=== PATIENT | male | born 1990 | race African-American/Black ===

== ENCOUNTER 2021-02-26 17:22 | Emergency (ER) | payer OTHER ==
[~2021-02-26] VITALS: Ht 182.9 cm; Wt 120.0 kg
[2021-02-26 18:33] LABS: BASOPHILS % (AUTO) 1 % (0-1); EOSINOPHILS % (AUTO) 4 % (1-7); LYMPHOCYTES % (AUTO) 32 % (22-44); MEAN CORPUSCULAR HEMOGLOBIN 33.3 pg (27.5-34.5); MEAN CORPUSCULAR HGB CONC 34.5 g/dL (33.2-36.2); MEAN PLATELET VOLUME 9.9 fL (7.4-10.4); MONOCYTES % (AUTO) 7 % (2-9); NEUTROPHILS % (AUTO) 56 % (42-75); PLATELET COUNT 260 x10^3/uL (130-400); RED BLOOD COUNT 4.78 x10^6/uL (4.38-5.82); RED CELL DISTRIBUTION WIDTH 12.7 % (9.4-14.8)
[2021-02-26 18:43] LABS: ALANINE AMINOTRANSFERASE 59 U/L (12-78); ALBUMIN 3.7 g/dL (3.4-5.0); ANION GAP 6 mmol/L (5-15); CALCIUM 8.5 mg/dL (8.5-10.1); CHLORIDE 108 mmol/L (98-107); CREATININE 1.02 mg/dL (0.7-1.3)
[2021-02-26 18:47] LABS: ALKALINE PHOSPHATASE 98 U/L (45-117); BILIRUBIN,TOTAL 0.5 mg/dL (0.2-1.0); TOTAL PROTEIN 8.1 g/dL (6.4-8.2); TROPONIN I < 0.015 ng/mL (0.000-0.045)
--- NOTE | 2021-02-26 19:54 | NUR ---
pt to room from lobby
[2021-02-26 20:25] VITALS: BP 141/88
[2021-02-26] MEDS ORDERED: KETOROLAC 30 MG/1 ML ONE (20:26)
[2021-02-26] MEDS ORDERED: KETOROLAC 30 MG/1 ML IM ONE (20:30)
[2021-02-26] MEDS ORDERED: IBUPROFEN 800 MG TABLET PO ONE (20:30)
[2021-02-26] MEDS ORDERED: IBUPROFEN 800 MG TABLET ONE (20:31)
--- NOTE | 2021-02-26 20:33 | NUR ---
PT REFUSING TORADOL. GIVEN MOTRIN. AWARE OF PENDING LABS.
--- NOTE | 2021-02-26 21:47 | NUR ---
PIV ESTB. TO CT.
[2021-02-26] MEDS ORDERED: OMNIPAQUE 350 MG/ML, 75ML BOTTLE ONE (21:52)
== END 2021-02-26 22:41 | disposition home or self-care (01) ==
LOC: ED 20:55
DX: R07.89 Other chest pain (principal); R06.00 Dyspnea, unspecified; R09.1 Pleurisy; F17.210 Nicotine dependence, cigarettes, uncomplicated
CPT/HCPCS: 36415; 71045; 71275; 80053; 84443; 84484; 85025; 85379; 93005; 99285; Q9967